=== PATIENT | male | born 1955 | race Two or more races ===

== ENCOUNTER 2019-11-30 05:56 | Emergency (ER) | payer MEDICARE, MEDICAID ==
[~2019-11-30] VITALS: Ht 167.6 cm; Wt 77.0 kg
[2019-11-30] MEDS ORDERED: OCTREOTIDE ACETATE 50 MCG/ML 1ML IV STA (06:13)
[2019-11-30] MEDS ORDERED: ONDANSETRON HCL 4MG/2ML INJ IV STA (06:13)
[2019-11-30] MEDS ORDERED: SODIUM CHLORIDE 0.9% 1,000 ML IV ONE (06:13)
[2019-11-30] MEDS ORDERED: PANTOPRAZOLE SODIUM 40 MG/VIAL IV STA (06:13)
[2019-11-30] MEDS ORDERED: OCTREOTIDE 1,000 MCG in SODIUM CHLORIDE 0.9% 100 ML IV STA (06:13)
[2019-11-30] MEDS ORDERED: CEFTRIAXONE 1 G PREMIX 50 ML IV ONE (06:15)
[2019-11-30] MEDS ORDERED: PROPOFOL 10MG/ML 100ML 100 ML IV ONE ×2 (06:15→06:18)
[2019-11-30] MEDS ORDERED: OCTREOTIDE 1,000 MCG in SODIUM CHLORIDE 0.9% 98 ML SUBCUT SCH (06:30)
[2019-11-30] MEDS ORDERED: OCTREOTIDE 1,000 MCG in SODIUM CHLORIDE 0.9% 98 ML IV SCH (06:30)
[2019-11-30 06:48] LABS: CHLORIDE 100 mEq/L (98-107)
[2019-11-30 06:52] LABS: HEMATOCRIT. 32.8 % (42.0-52.0); HEMOGLOBIN. 10.5 g/dL (14.0-18.0); INR 1.9; MEAN CORPUSCULAR VOLUME 81.3 fL (80.0-94.0); MEAN PLATELET VOLUME 9.5 fl (7.4-10.4); PARTIAL THROMBOPLASTIN TIME 34.8 sec (23.4-31.0); PROTHROMBIN TIME 19.8 sec (9.6-11.0); RED BLOOD CELL COUNT 4.03 mill/uL (4.7-6.1); RED CELL DISTRIBUTION WIDTH 18.3 % (11.6-14.6)
[2019-11-30 07:01] LABS: PLATELET 43 x1000/uL (130-400)
[2019-11-30 07:15] LABS: CLARITY URINE CLOUDY (CLEAR); COLOR URINE ORANGE (YELLOW); KETONES URINE 1+ (NEGATIVE); LEUKOCYTE ESTERASE URINE 1+ (NEGATIVE); NITRITE URINE POSITIVE (NEGATIVE); OCCULT BLOOD URINE TRACE (NEGATIVE); PH URINE 5.5 (4.5-8.0); PROTEIN URINE 1+ (NEGATIVE); SPECIFIC GRAVITY URINE 1.024 (1.005-1.030)
[2019-11-30] MEDS ORDERED: SODIUM CHLORIDE 0.9% 1000ML BAG (SEPSIS BOLUS) IV SCH (07:15)
[2019-11-30] MEDS ORDERED: PIPERACILLIN/TAZ 3.375G PREMIX 50 ML IV ONE (07:15)
[2019-11-30 07:19] LABS: BG BASE EXCESS -6.2 mmol/L (-2.0-2.0); BG CARBOXYHEMOGLOBIN 0.7 % (0.5-1.5); BG DEOXYHEMOGLOBIN 0.8 % (0.0-5.0); BG HCO3 ACT 18.7 mmol/L (22.0-26.0); BG METHEMOGLOBIN 0.3 % (0.0-1.5); BG OXYGEN SATURATION 99.2 % (92.0-98.5); BG OXYHEMOGLOBIN 98.2 % (94.0-97.0); BG PCO2 34.5 mmHg (35.0-45.0); BG PH 7.351 (7.350-7.450); BG PO2 180.4 mmHg (75.0-100.0); BG SAMPLE SITE LEFT BRACHIAL; BG TIDAL VOLUME(mL) 550 mL; BG TOTAL HEMOGLOBIN 11.3 g/dL (12.0-18.0); BG VENT MODE VENT - A/C; BG VENT RATE 14 set
[2019-11-30 07:34] LABS: *AMPHETAMINES SCREEN URINE PRESUMTIVE POSITIVE (NEGATIVE)
[2019-11-30 07:38] LABS: *BARBITURATES SCREEN URINE NEGATIVE (NEGATIVE); *BENZODIAZEPINES SCREEN URINE NEGATIVE (NEGATIVE); *COCAINE SCREEN URINE NEGATIVE (NEGATIVE); METHADONE URINE SCREEN NEGATIVE (NEGATIVE); OPIATES URINE SCREEN NEGATIVE (NEGATIVE)
[2019-11-30 07:39] LABS: CANNABINOID URINE SCREEN NEGATIVE (NEGATIVE); PHENCYCLIDINE URINE SCREEN NEGATIVE (NEGATIVE)
[2019-11-30 07:46] LABS: PLATELET ESTIMATE DECREASED
[2019-11-30] MEDS ORDERED: LEVETIRACETAM 500MG PREMIX 100 ML IV ONE (08:30)
[2019-11-30] MEDS ORDERED: DEXAMETHASONE 10 MG/ML VIAL IV ONE (08:30)
[2019-11-30] MEDS ORDERED: MANNITOL 20% 250 ML IV ONE (08:30)
[2019-11-30] MEDS ORDERED: PHYTONADIONE 10MG/ML AMP SUBCUT SCH (08:30)
[2019-11-30] MEDS ORDERED: NOREPINEPHRINE 8 MG in DEXT 5% WATER 242 ML IV STA (08:33)
[2019-11-30] MEDS ORDERED: ONDANSETRON HCL 4MG/2ML INJ IV PRN (11:45)
[2019-11-30] MEDS ORDERED: DEXT 5%/LACTATED RINGERS 1,000 ML IV SCH (11:56)
[2019-11-30] MEDS ORDERED: VECURONIUM BROMIDE 10 MG/VIAL IV ONE (11:59)
[2019-11-30] MEDS ORDERED: ETOMIDATE 2MG/ML 10ML VIAL IV ONE (11:59)
[2019-11-30] MEDS ORDERED: SODIUM CHLORIDE 0.9% 10ML VIAL ONE (11:59)
[2019-11-30] MEDS ORDERED: METRONIDAZOLE 500 MG PREMIX 100 ML IV SCH (12:00)
[2019-11-30 12:05] VITALS: BP 141/64
[2019-11-30] MEDS ORDERED: NOREPINEPHRINE 8MG/250ML PMX 250 ML IV ONE (12:10)
[2019-11-30 12:41] LABS: HEPATITIS B SURFACE ANTIGEN NEGATIVE
[2019-11-30 13:11] LABS: HEPATITIS A AB IGM NEGATIVE (NEGATIVE)
[2019-11-30] MEDS ORDERED: LEVETIRACETAM 500MG PREMIX 100 ML IV SCH (21:00)
[2019-12-01] MEDS ORDERED: CEFTRIAXONE 1,000 MG in DEXTROSE 5% WATER 50 ML IV SCH (06:30)
[2019-12-01] MEDS ORDERED: PANTOPRAZOLE SODIUM 40 MG/VIAL IV SCH (09:00)
== END 2019-11-30 12:14 | disposition short-term general hospital (02) ==
LOC: ER 05:56 → CANBEDREQ 13:42
DX: S06.5X9A Traumatic subdural hemorrhage with loss of consciousness of unspecified duration, initial encounter (principal); A41.9 Sepsis, unspecified organism; R65.21 Severe sepsis with septic shock; I62.00 Nontraumatic subdural hemorrhage, unspecified; R41.82 Altered mental status, unspecified; R00.0 Tachycardia, unspecified; R06.82 Tachypnea, not elsewhere classified; I60.9 Nontraumatic subarachnoid hemorrhage, unspecified; F10.10 Alcohol abuse, uncomplicated; L53.9 Erythematous condition, unspecified; R11.10 Vomiting, unspecified; J96.90 Respiratory failure, unspecified, unspecified whether with hypoxia or hypercapnia; D68.9 Coagulation defect, unspecified; D69.6 Thrombocytopenia, unspecified; D64.9 Anemia, unspecified; J18.9 Pneumonia, unspecified organism; R17 Unspecified jaundice; E43 Unspecified severe protein-calorie malnutrition; N39.0 Urinary tract infection, site not specified; J96.01 Acute respiratory failure with hypoxia; G93.40 Encephalopathy, unspecified; B19.20 Unspecified viral hepatitis C without hepatic coma; R74.0 Nonspecific elevation of levels of transaminase and lactic acid dehydrogenase [LDH]; F16.10 Hallucinogen abuse, uncomplicated; X58.XXXA Exposure to other specified factors, initial encounter; Y93.89 Activity, other specified; Y92.89 Other specified places as the place of occurrence of the external cause; Y99.8 Other external cause status; Y90.9 Presence of alcohol in blood, level not specified
CPT/HCPCS: 31500; 36415; 36556; 36600; 70450; 71045; 80053; 80305; 80320; 81003; 82375; 82805; 82962; 83605; 83690; 84145; 84484; 85025; 85610; 85730; 86705; 86709; 86803; 86850; 86900; 86901; 86920; 86927; 87040; 87086; 87340; 93005; 96365; 96368; 96372; 96375; 99291; C9113; J0696; J1100; J1953; J2354; J2405; J2543; J2704; J3430; J3490; J7030; J7060; 94002; J7050; P9016; P9017; G0480